=== PATIENT | male | born 1975 | race Caucasian/White ===

== ENCOUNTER 2017-09-14 19:02 | Emergency (ER) | payer MEDICAID ==
[~2017-09-14] VITALS: Ht 177.8 cm; Wt 96.2 kg
[~2017-09-14 19:02] MED LIST: ACCUNEB SOL3 ML/NEB IN; ALBUTEROL-200 PUFFS/ IH; ALBUTEROL0.09 MG/A1 IH; ALBUTEROL2 PUFFS/17 IN; ALBUTEROL200 PUFFS/ IH; ALPRAZOLAM0.25 M2 PO; AMOXIL500 MG PO; BACTRIM DS 8001 TAB PO; BIAXIN500 MG PO; CIPRO 500MG TA500 MG PO; CLINDAMYCIN300 MG PO; DARVOCET-N 1001 EACH PO; DOXYCYCLINE HY100 M3 PO; DOXYCYCLINE MO100 MG PO; DUONEB 3 MG/3 ML3 ML IH; ESCITALOPRAM20 MG NG; FLEXERIL10 MG PO; GABAPENTIN300 M1 PO; IPRATROPIUM BROM3 M1 IH; K-DUR 2020 MEQ PO; KEFLEX 500MG.500 MG PO; LORTAB 5/500 501 TAB PO; MEDROL 4MG TABLE4 MG PO; MEDROL 4MG. DOSE4 MG PO; NAPROSYN 500MG500 MG PO; OMNICEF 300 MG300 MG PO; PERCOCET 5/3251 EACH PO; PERCOCET 650 MG1 TAB PO; PHENERGAN VC +120 ML PO; PREDNISONE 10MG10 MG PO; PREDNISONE 20MG20 MG PO; PREDNISONE50 MG PO; PROVENTIL0.09 MG/A1 IH; STERAPRED DS10 MG PO; SYMBICORT 10.10.2 M1 IH; TESSALON PERLE100 MG PO; TESSALON PERLE200 MG PO; TRAMADOL 50MG T50 MG PO; TYLENOL ES500 MG PO; TYLENOL PM 5001 CAP PO; TYLENOL W/CODEI1 TA2 PO; ULTRACET 325 MG1 TAB PO; ULTRAM 50 MG TA50 MG PO; ULTRAM50 MG PO; VENTOLIN H0.09 MG/Ac IH; VIBRA-TABS100 MG PO; VIBRAMYCIN 100100 MG PO; VOLTAREN1% TP; VOLTAREN75 MG PO; XANAX 1MG TABLET1 MG PO; XANAX1 MG PO; ZITHROMAX 250M250 MG PO; ZYRTEC 10MG TAB10 MG PO; ZYRTEC-D 12HR 51 TER PO
--- OUTSIDE RECORDS SUMMARY | 2017-09-14 19:13 | External Medical Summary Rpt | CCD ---
Author Author , KEIRY Organization KEIRY Address Unknown Phone [email or web address] Care Team Providers Care Splitting Machine Operator Name Role Phone [facility] Unavailable Unavailable [place], [facility] [place] BEINEKE, BEINEKE Unavailable Unavailable [facility] Unavailable Unavailable SERVICE, [facility] Unavailable Unavailable SERVICE, [facility] ADY RODRÍGUEZ, Unavailable Unavailable ADY RODRÍGUEZ [facility] Unavailable Unavailable [facility], [facility] Unavailable [facility]available [facility], [facility] WOOD JULIO, WOOD JULIO Unavailable Unavailable WOOD JULIO, WOOD JULIO Unavailable Unavailable SIENA STEARNS, Unavailable Unavailable SIENA STEARNS [facility], Unavailable Unavailable [facility] [place] [facility] [place] [facility], RED Unavailable Unavailable FRYMAN, FRYMAN Unavailable Unavailable FRYMAN EUG, FRYMAN Unavailable Unavailable EUG DIO BOGDAN, DIO Unavailable Unavailable BOGDAN [facility] Unavailable Unavailable INC, [facility] Unavailable Unavailable HOSPITAL, [facility] Unavailable Unavailable HOSPITAL P, [facility] P [facility], Unavailable [facility]available [facility], Unavailable Unavailable [facility] ARACELIS DUGAN Unavailable Unavailable [facility] Unavailable Un[facility], [facility] Unavailable Unavailable [facility]INGS, [facility] Unavailable Unavailable [facility], [facility] Unavailable Unavailable SERVICES, [facility] BEREKET GRAHAM JR Unavailable Unavailable F, BEREKET GRAHAM JR, EMMETT P, Unavailable Unavailable [facility], Unavailable Unavailable PLL[facility], [facility] PRETORIUS MARKUS, Unavailable Unavailable PRETORIUS MARKUS [id number], Unavailable Unavailable [id number] SCIFRES, SCIFRES Unavailable Unavailable SCIFRES, SCIFRES Unavailable Unavailable SOKAN BAB, SOKAN BAB Unavailable Unavailable PAUL SANTIAGO, Unavailable Unavailable PAUL SANTIAGO MD, Unavailable Unavailable Russel Graham MD [facility] Unavailable Unavailable #591, [facility] REYNOLDS MAR, REYNOLDS MAR Unavailable Unavailable Purpose Continuity of Care Document - 11-28-2007 through 2016 Problems Code Diagnosis DOS Provider Status H524 PRESBYOPIA 11-25-2016 SCIF[facility] [id number] UNSPECIFIED 10-15-2016 [facility] ED R0602 SHORTNESS 10-15-2016 [place] R062 WHEEZING 10-15-2016 [facility], [facility] J40 BRONCHITIS 10-05-2016 [facility] NOT PHYSICIAN SPECIFIED GROUP ACUTE OR CHRONIC J209 ACUTE 07-31-2016 [facility] BRONCHITIS PHYSICIAN UNSPECIFIED GROUP E663 OVERWEIGHT 05-14-2016 [facility] Z720 TOBACCO USE 05-14-2016 [facility] B356 TINEA 04-11-2016 [facility] CRURIS PHYSICIANS GROUP J449 CHRONIC 04-11-2016 [facility] OBSTRUCTIVE PHYSICIANS PULMONARY GROUP DISEASE UNS D649 ANEMIA 10-17-2015 [facility] [place] E559 VITAMIN D 10-17-2015 [facility]ICIENC[facility] UNSPECIFIED HOLDINGS B57367 UNSPECIFIED 10-17-2015 [facility] WITH ACUTE HOLDINGS EXACERBATIO N J3089 OTHER 10-10-2015 [facility] [place] J440 COPD WITH 10-10-2015 [facility] ACUTE [facility] [place] RESPIRATORY INFECTION J4520 MILD 10-10-2015 [facility] INTERMITTEN [facility] T [facility] [place] UNCOMPLICAT ED [id number] PERSONAL 10-10-2015 [facility] HISTORY OF PARTN[facility] OF NICOTINE [place] DEPENDENCE 4660 ACUTE 04-30-2015 [facility] 28737 METHICILLIN 02-16-2015 [facility] P CUS AUREUS 6823 CELLULITIS 02-16-2015 [facility] P ARM AND FOREARM V5869 LONG-TERM 05-17-2013 WOOD JULIO (CURRENT) USE OF OTHER MEDICATIONS 5070 PNEUMONITIS 05-04-2013 [facility] DUE TO EMERGENCY INHALATION SERVICES OF FOOD OR VOMITUS 92746 ALTERED 05-04-2013 [facility] EMERGENCY STATUS SERVICES 52162 SHORTNESS 05-04-2013 [facility] V154 PERS HX 04-28-2008 DEPT FOR PSYCHOLOGIC PUBLIC HLTH AL TRAUMA PRS [facility] 71876 ASTHMA, 02-06-2008 PAMELA, UNSPECIFIED DON R , UNSPECIFIED STATUS 65257 UNS ADVRS 02-06-2008 PAMELA, EFF OTH RX DON R MEDICINAL&B IOLOGICAL SBSTNC 2768 HYPOPOTASSE 02-05-2008 [facility] PROF SERV 23231 CHRONIC 02-05-2008 [facility] WITH PROF SERV EXACERBATIO N 9712 POISONING 02-05-2008 [facility] ETICS PROF SERV 7295 PAIN IN 02-02-2008 SANTIAGO, SOFT DON R TISSUES OF LIMB 48455 CLOSED 11-30-2007 RODRÍGUEZ, FRACTURE ADY METACARPAL BONE SITE UNSPECIFIED [id number] Anxiety [place] disorder [facility] 724.2 Low back [facility] Allergies, Adverse Reactions, Alerts Type Drug Allergy Food Allergy Adverse Reaction to Substance Substance Reaction Severity Hydrocodone I-HIVES Intermediate Peanuts "THROAT SWELLS SHUT" Severe PEANUTS (FOOD) "THROAT SWELLS SHUT" Severe Clinical Alert Notifications Alert Asthma: absence of controller with h/o SA beta agonist Asthma: no influenza vaccine in the last 365 days Medications Na ND Rx Da Fi Fi Am Da Di Ph RX Ph St me C No te ll ll ou ys ag ar # ys at rm s nt no ma ic us Or Da si cy ia de te s n re d CE 16 12 02 30 30 00 EA Ac TI 71 -3 -[address] ti RI 40 0- 3- 00 00 SI ve ZI 27 20 20 44 DE NE 10 16 17 80 3 77 PH HC AR L MA 10 CY MG OF CY TA NT BL HI ET AN A IN C VE 00 12 01 18 18 00 EA Ac NT 17 -2 -[address] ti OL 30 7- 7- 00 00 SI ve IN 68 20 20 47 DE 22 16 17 02 HF 0 90 PH A AR 90 MA CY MC G OF IN CY [place] NT LE HI R AN A IN C VE 00 12 01 18 18 00 EA Ac NT 17 -0 -[address] ti OL 30 3- 9- 00 00 SI ve IN 68 20 20 44 DE 22 16 17 80 HF 0 78 PH A AR 90 MA CY MC G OF IN CY [place] NT LE HI R AN A IN C CE 16 12 01 30 30 00 EA Ac TI 71 -0 -[address] ti RI 40 3- 9- 00 00 SI ve ZI 27 20 20 44 DE NE 10 16 17 80 3 77 PH HC AR L MA 10 CY MG OF CY TA NT BL HI ET AN A IN C CE 00 06 0 No FT 40 -0 RI 97 8- Lo AX 33 20 ng ON 30 13 er E 4 1 Ac GM ti ve AL So 00 06 0 No d 07 -0 Ch 47 8- Lo lo 10 20 ng ri 11 13 er de 3 Ac 0. ti 9% ve 50 ML Ad v IP 00 06 0 No RA 48 -0 T- 70 7- Lo AL 20 20 ng BU 10 13 er T 1 0. Ac 5- ti 3( ve 2. 5) MG /3 ML Sa 63 06 0 No li 80 -0 ne 70 7- Lo 10 20 ng Fl 07 13 er us 5 h Ac 10 ti ML ve Sy ri ng e Ga 68 06 1 No ba 08 -0 pe 40 7- Lo nt 08 20 ng in 00 13 er 1 30 Ac 0M ti G ve Ca ps ul e Al 68 06 1 No pr 08 -0 az 40 7- Lo ol 02 20 ng am 00 13 er 1 1M Ac G ti Ta ve bl et Me 00 06 1 No th 00 -0 yl 90 7- Lo pr 19 20 ng ed 00 13 er ni 9 so Ac lo ti ne ve So d Schwartz cc in a CE 00 06 0 No FT 40 -0 RI 97 7- Lo AX 33 20 ng ON 30 13 er E 4 1 Ac GM ti ve AL So 00 06 0 No d 07 -0 Ch 47 7- Lo lo 10 20 ng ri 11 13 er de 3 Ac 0. ti 9% ve 50 ML Ad v AZ 00 06 1 No IT 40 -0 HR 90 7- Lo OM 14 20 ng YC 41 13 er IN 1 Ac I. ti V. ve 50 0 MG AL SO 00 06 1 No DI 40 -0 UM 97 7- Lo 10 20 ng CH 10 13 er LO 2 RI Ac DE ti ve 0. 9% SO LN CL 00 06 0 No IN 40 -0 DA 94 7- Lo MY 05 20 ng CI 50 13 er N 3 15 Ac 0 ti MG ve /M L AD DV AN So 00 06 0 No di 07 -0 um 47 7- Lo 10 20 ng Ch 12 13 er lo 3 ri Ac de ti ve 0. 9% 10 0M L Ad v So 00 06 1 No di 07 -0 um 47 7- Lo 10 20 ng Ch 12 13 er lo 3 ri Ac de ti ve 0. 9% 10 0M L Ad v 17 06 07 01 [address] Ac 27 -0 -0 .0 TE 63 EP ti 00 6- 3- 00 76 HE ve 72 20 20 AI NS 10 08 08 D 1 PH DO AR N M R #3 93 8 00 06 07 00 10 2 EA 98 No Ac 05 -1 -[address] 36 t ti 44 3- 3- 00 SI 75 Av ve 65 20 20 DE ai 02 08 08 la 5 PH bl AR e MA CY OF CY NT HI AN A AM 00 06 07 00 30 10 EA 98 No Ac OX 78 -1 -[address] 36 t ti IC 12 3- 3- 00 SI 76 Av ve IL 61 20 20 DE ai LI 30 08 08 la N 5 PH bl 50 AR e 0 MA MG CY CA OF PS CY UL NT E HI AN A 00 06 06 00 12 3 EA 98 No Ac 05 -0 -[address] 27 t ti 44 6- 2- 00 SI 51 Av ve 65 20 20 DE ai 02 08 08 la 5 PH bl AR e MA CY OF CY NT HI AN A AD 00 06 06 00 [address] Ac VA 17 -0 -1 .0 TE 63 EP ti IR 30 6- 2- 00 77 HE ve 69 20 20 AI NS 10 50 08 08 D 0- 0 PH DO 50 AR N M R DI #3 SK 93 US 8 17 06 06 00 [address] Ac 27 -0 -1 .0 TE 63 EP ti 00 6- 2- 00 76 HE ve 72 20 20 AI NS 10 08 08 D 1 PH DO AR N M R #3 93 8 17 01 05 04 17 16 RI 71 No Ac 27 -2 -0 .0 TE 60 t ti 00 1- 8- 00 08 Av ve 72 20 20 AI ai 10 08 08 D la 1 PH bl AR e M #3 93 8 17 01 04 03 17 16 RI 71 No Ac 27 -2 -2 .0 TE 60 t ti 00 1- 4- 00 08 Av ve 72 20 20 AI ai 10 08 08 D la 1 PH bl AR e M #3 93 8 AD 00 03 04 00 60 30 WA 69 No Ac VA 17 -1 -1 .0 L- 64 t ti IR 30 3- 7- 00 MA 25 Av ve 69 20 20 RT 8 ai 25 60 08 08 la 0- 0 PH bl 50 AR e MA DI CY SK US #5 91 00 03 04 00 6. 3 RI 72 No Ac 08 -1 -1 00 TE 38 t ti 51 0- 7- 0 05 Av ve 71 20 20 AI ai 80 08 08 D la 2 PH bl AR e M #3 93 8 VE 00 03 04 00 18 22 WA 69 No Ac NT 17 -1 -1 .0 L- 64 t ti OL 30 3- 7- 00 MA 25 Av ve IN 68 20 20 RT 7 ai 22 08 08 la HF 0 PH bl A AR e 90 MA CY MC G #5 IN 91 [place] LE R ME 00 03 04 00 21 6 RI 72 No Ac TH 60 -1 -1 .0 TE 38 t ti YL 34 0- 7- 00 03 Av ve MA 59 20 20 AI ai ED 31 08 08 D la NI 5 PH bl SO AR e LO M NE #3 4 93 8 MG DO SE PK AV 00 03 04 00 7. 7 WA 69 No Ac EL 08 -1 -1 00 L- 64 t ti OX 51 4- 7- 0 MA 25 Av ve 73 20 20 RT 9 ai 40 30 08 08 la 0 1 PH bl MG AR e MA TA CY BL ET #5 91 DO 00 03 04 00 14 7 RI 72 No Ac XY 14 -1 -1 .0 TE 38 t ti CY 33 0- 7- 00 04 Av ve CL 14 20 20 AI ai IN 20 08 08 D la E 5 PH bl HY AR e CL M AT #3 E 93 10 8 0 MG CA P 17 01 04 02 17 16 RI 71 No Ac 27 -2 -1 .0 TE 60 t ti 00 1- 0- 00 08 Av ve 72 20 20 AI ai 10 08 08 D la 1 PH bl AR e M #3 93 8 17 01 03 01 17 16 RI 71 No Ac 27 -2 -2 .0 TE 60 t ti 00 1- 6- 00 08 Av ve 72 20 20 AI ai 10 08 08 D la 1 PH bl AR e M #3 93 8 17 01 03 00 17 16 RI 71 No Ac 27 -2 -2 .0 TE 60 t ti 00 1- 5- 00 08 Av ve 72 20 20 AI ai 10 08 08 D la 1 PH bl AR e M #3 93 8 VA 00 01 03 00 14 7 RI 71 No Ac LT 17 -0 -2 .0 TE 41 t ti RE 30 9- 4- 00 63 Av ve X 93 20 20 AI ai 50 30 08 08 D la 0 8 PH bl MG AR e M CA #3 PL 93 ET 8 Vital Signs 05-05-2013 10:00 Name Value Interpretat Reference Comment ion Range Body 97.9 [degF] Temperature BP 77 mm[Hg] Diastolic BP Systolic 130 mm[Hg] Heart 80 /min Rate/Pulse Respiratory 20 /min Rate 05-05-2013 04:00 Name Value Interpretat Reference Comment ion Range O2% 96 % 05-04-2013 10:59 Name Value Interpretat Reference Comment ion Range Height 170.18 cm Weight 83.178 kg Measured 05-04-2013 08:14 Name Value Interpretat Reference Comment ion Range Body 99.8 [degF] Temperature BP 81 mm[Hg] Diastolic BP Systolic 141 mm[Hg] Heart 104 /min Rate/Pulse O2% 94 % Respiratory 20 /min Rate Weight 0 [oz_av] Measured Results Labs Lab Lab Date Result Refere Interp Status Commen Order Detail nces retati t Range on CBC with AUTO DIFF (05-05-2013 06:00) WBC # 08-2 16.9 4.8-10. complet Bld 013 K/MM3 8 ed Auto 06:00 RBC # 08-2 4.40 4.6-6.2 complet Bld 013 M/mm3 ed Auto 06:00 Hgb 05-05-2 12.7 14.1-18 complet Bld-mCn 013 g/dL .0 ed c 06:00 Hct Fr 05-05-2 38.4 % 42.0-52 complet Bld 013 .0 ed 06:00 MCV RBC 05-05-2 87.4 fl 82.2-97 complet 013 .8 ed 06:00 MCH RBC 05-05-2 28.9 pg 27-31.2 complet Qn 013 ed Auto 06:00 MEAN 05-05- 33.1 31.8-35 complet CORPUSC 013 g/dl .4 ed ULAR 06:00 HGB CONC RDW RBC 05-05- 14.1 % 11.5-17 complet Auto 013 .5 ed 06:00 Platele -08-2 210 142-424 complet t Bld 013 K/mm3 ed Ql 06:00 Manual MEAN 08-2 8.4 fl 7.4-10. complet PLATELE 013 4 ed T 06:00 VOLUME Granulo 08-2 93.7 % 37.0-80 complet cytes 013 .0 ed Fr Bld 06:00 Auto LYMPH % 08-2 4.4 % 10-50 complet 013 ed 06:00 Monocyt 0608-2 1.7 % 1.7-9.3 complet es Fr 013 ed Bld 06:00 Auto Eosinop 06-08-2 0.1 % 0.1-12. complet hil Fr 013 0 ed Bld 06:00 Auto Basophi 08-2 0.1 % 0.1-2.0 complet ls Fr 013 ed Bld 06:00 Auto Granulo -08-2 15.8 1.3-8.0 complet cytes # 013 K/mm3 ed Bld 06:00 Auto Lymphoc 08-2 0.7 0.7-4.5 complet ytes Fr 013 K/mm3 ed Bld 06:00 Auto Monocyt 06-08-2 0.3 0.1-1.0 complet es # 013 K/mm3 ed Bld 06:00 Auto Eosinop -08-2 0.0 0.0-0.4 complet hil # 013 K/mm3 ed Bld 06:00 Auto Basophi -08-2 0.0 0-0.2 complet ls # 013 K/MM3 ed Bld 06:00 Auto ARTERIAL BLOOD GAS (05-04-2013 08:45) ARTERIA 07-2 7.39 7.35-7. complet L PH 013 MMOL/L 45 ed 08:45 ARTERIA 07-2 41.0 35.0-45 complet L PCO2 013 MMHG .0 ed 08:45 ARTERIA 07-2 58.0 80-100 complet L PO2 013 MMHG ed 08:45 ARTERIA 07-2 25.0 22.0-26 complet L HCO3 013 MMOL/L .0 ed 08:45 ARTERIA 07-2 17.6 23-27 complet L TCO2 013 MMOL/L ed 08:45 Base 06-07-2 -0.2 -2.4-+2 complet excess 013 MMOL/L .3 ed BldA-sC 08:45 nc ARTERIA 91 % 90-100 complet L O2 013 ed SAT 08:45 Arteria ACCEPTA complet l 013 BLE ed patency 08:45 Wrist a SOURCE RIGHT complet 013 RADIAL ed 08:45 COMPREHENSIVE METABOLIC PANEL (05-04-2013 08:30) Glucose 162 74-106 complet 013 mg/dL ed Bld-mCn 08:30 c BUN 8 mg/dL 7-18 complet Bld-mCn 013 ed c 08:30 Creat 1.2 0.8-1.3 complet SerPl-m 013 mg/dL ed Cnc 08:30 GFR 68 Greater complet (ESTIMA 013 ML/MIN than ed BRAIN) 08:30 60 Sodium 139 136-145 complet SerPl-s 013 mmoL/L ed Cnc 08:30 Potassi 4.1 3.5-5.1 complet um 013 mmoL/L ed SerPl-s 08:30 Cnc Chlorid 102 98-107 complet e 013 mmoL/L ed SerPl-s 08:30 Cnc CO2 31 21.0-32 complet SerPl-s 013 mmoL/L .0 ed Cnc 08:30 Calcium 8.8 8.5-10. complet 013 mg/dL 1 ed SerPl-m 08:30 Cnc Prot 8.0 6.4-8.2 complet SerPl-m 013 gm/dL ed Cnc 08:30 Albumin 05-04-2 4.0 3.4-5.0 complet 013 gm/dL ed SerPl-m 08:30 Cnc Globuli 4.0 1.3-3.2 complet n 013 gm/dL ed Ser-mCn 08:30 c Albumin 2 1.0 UNK 1.1-1.8 complet /Glob 013 ed SerPl-m 08:30 Rto Bilirub 0.2 0.2-1.0 complet 013 mg/dL ed SerPl-m 08:30 Cnc AST 06-07-2 21 U/L 15-37 complet SerPl-c 013 ed Cnc 08:30 ALT 06-07-2 40 U/L 30-65 complet SerPl-c 013 ed Cnc 08:30 ALP 06-07-2 117 U/L 50-136 complet SerPl-c 013 ed Cnc 08:30 CBC with AUTO DIFF (05-04-2013 08:30) WBC # 06-07-2 21.6 4.8-10. High complet Bld 013 K/MM3 8 alert ed Auto 08:30 RBC # 06-07-2 5.10 4.6-6.2 complet Bld 013 M/mm3 ed Auto 08:30 Hgb 06-07-2 14.5 14.1-18 complet Bld-mCn 013 g/dL .0 ed c 08:30 Hct Fr -07-2 44.2 % 42.0-52 complet Bld 013 .0 ed 08:30 MCV RBC 06-07-2 86.6 fl 82.2-97 complet 013 .8 ed 08:30 MCH RBC -07-2 28.4 pg 27-31.2 complet Qn 013 ed Auto 08:30 MEAN 06-07-2 32.8 31.8-35 complet CORPUSC 013 g/dl .4 ed ULAR 08:30 HGB CONC RDW RBC -07-2 13.9 % 11.5-17 complet Auto 013 .5 ed 08:30 Platele 06-07-2 274 142-424 complet t Bld 013 K/mm3 ed Ql 08:30 Manual MEAN 07-2 7.5 fl 7.4-10. complet PLATELE 013 4 ed T 08:30 VOLUME Granulo -07-2 89.7 % 37.0-80 complet cytes 013 .0 ed Fr Bld 08:30 Auto LYMPH % 06-07-2 4.1 % 10-50 complet 013 ed 08:30 Monocyt 06-07-2 5.1 % 1.7-9.3 complet es Fr 013 ed Bld 08:30 Auto Eosinop 06-07-2 0.9 % 0.1-12. complet hil Fr 013 0 ed Bld 08:30 Auto Basophi 06-07-2 0.3 % 0.1-2.0 complet ls Fr 013 ed Bld 08:30 Auto Granulo 06-07-2 19.3 1.3-8.0 complet cytes # 013 K/mm3 ed Bld 08:30 Auto Lymphoc 06-07-2 0.9 0.7-4.5 complet ytes Fr 013 K/mm3 ed Bld 08:30 Auto Monocyt -07-2 1.1 0.1-1.0 complet es # 013 K/mm3 ed Bld 08:30 Auto Eosinop 06-07-2 0.2 0.0-0.4 complet hil # 013 K/mm3 ed Bld 08:30 Auto Basophi 06-07-2 0.1 0-0.2 complet ls # 013 K/MM3 ed Bld 08:30 Auto MYCOPLASMA IGM (RAPID) (05-04-2013 08:30) MYCOPLA 07-2 NON-RJ NONREAC complet SMA IGM 013 CTIVE TIVE ed 08:30 (RAPID) Procedures Procedure DOS Code Location Performer Comment OPHTH [address] [facility] [place] [facility] MEDICAL 6 XM&EVAL COMPRE NEW PT 1/> VST RADIOLOGI 45071 [facility] C EXAM 6 MEDICAL CHEST 2 IMAGING VIEWS ASS FRONTAL&L ATERAL THERAPEUT 49565 [facility] FRYMAN IC 6 PHYSICIAN PROPHYLAC GROUP TIC/DX INJECTION SUBQ/[place] [address] LAB ANA LAB ANA GAMMAGLOB 5 GALO GAL[facility] ULIN IGE [facility]INGS HOLDINGS 25 57288 LAB ANA LAB ANA HYDROXY 5 GALO GAL[facility] INCLUDES HOLDINGS HOLDINGS FRACTIONS IF PERFORMED BLOOD 33461 COMBINED COMBINED COUNT 5 PHYSICIAN PHYSICIAN COMPLETE S LA S LA AUTO&AUTO DIFRNTL WBC ALLERGEN 76435 LAB ANA LAB ANA SPECIFIC 5 [facility]O G[facility] HOLDINGS EMILY/SEMI EMILY EA ALLERGEN BRNCDILAT 00515 [facility] RE[facility] MAR RSPSE 5 PART[facility]ERS SPMTRY [facility] [place] PRE&POST- CO BRNCDILAT ADMN DEMO&/GABRIELLA 09497 [facility] ALLERGY L OF PT 5 PARTNERS PARTNERS UTILIZ [facility] [place] [facility] [place] AERSL CO CO GEN/NEB/I NHLR/IP NITRIC 85486 [facility] ALL[facility]GY OXIDE 5 [facility] [facility] [place] GAS CO CO DETERMINA TION CUL BACT 69396 [facility] XCPT 5 [facility] URINE INC INC BLOOD/STO OL AEROBIC ISOL CUL BACT 80487 [facility] AEROBIC 5 [facility] ADDL INC INC METHS DEFINITIV E EA ISOL INCISION 77711 [facility] PRETORIUS & 5 [facility] ABSCESS P SIMPLE/SI NGLE SUSCEPTIB 27264 [facility] ASTORGA LTY STDY 5 [facility] ANTIMICRB INC INC IAL MICRO/AGA R DILUTJ ECG 38858 WOOD JULIO WOOD JULIO ROUTINE 3 ECG W/LEAST 12 LDS I&R ONLY GROUND A0425 [facility] AM[facility]ULANCE PER SERVICE SERVICE STATUTE MILE [facility] A0427 [facility] SERVICE 3 AMBULANCE AMBULANCE ALS SERVICE SERVICE EMERGENCY TRANSPORT LEVEL 1 [facility] [address] [facility], DISCHARGE 8 DON R DON R DAY MANAGEMEN T 30 MIN/< SBSQ 74241 [facility] 8 DON R DON R CARE/DAY 25 MINUTES SBSQ 80502 [facility] 8 DON R DON R CARE/DAY 25 MINUTES RADIOLOGI 01280 [place] Alejandra STEARNS 8 MEDICAL SIENA EXAMINATI IMAGING ON CHEST ASSOCIATE SING[place] S [place] FRONTAL INITIAL [address] [place] [address] DON R DON R CARE/DAY 50 MINUTES RADIOLOGI 62690 [place] Alejandra LARSON EXAM 8 MEDICAL FRANCISCO P CHEST 2 IMAGING VIEWS ASSOCIATE FRONTAL&L S ATERAL ECG 70973 GAURI SEBASTIEN ROUTINE 8 [facility] BEREKET F W/LEAST PROF SERV 12 LDS I&R ONLY APPLICATI 61110 ANNE RODRÍGUEZ, ON CAST 8 ADY ADY SHOULDER HAND LONG ARM Encounters Encounter Start End Date Code Location Performer Type Date EMERGENCY 54792 [facility] FRANCES[facility] 6 6 PHYSICIAN DEPARTMEN S, PLLC T VISIT MODERATE SEVERITY OFFICE 23934 [facility] FRYMAN OUTPATIEN 6 6 PHYSICIAN T VISIT GROUP 25 MINUTES OFFICE 20088 [facility] RED OUTPATIEN 6 6 PHYSICIAN T VISIT GROUP 25 MINUTES OFFICE 20499 [facility] DIO OUTPATIEN 6 6 PHYSICIAN BOGDAN T VISIT S GROUP 15 MINUTES OFFICE 27472 [facility] DIO OUTPATIEN 6 6 PHYSICIAN BOGDAN T VISIT S GROUP 15 MINUTES OFFICE 00237 [facility] REYNOLDS MAR CONSULTAT 5 5 PARTNERS ION OF [place] NEW/ESTAB CO PATIENT 60 MIN OFFICE 73629 GA[facility] BARRETT OUTPATIEN 5 5 [facility] EMERGENCY 15 MINUTES EMERGENCY 08184 GAURI 5 5 [facility] T VISIT MODERATE SEVERITY EMERGENCY 92488 GAURI PRETORIUS 5 5 [facility] T VISIT P LIMITED/M INOR [facility] GAURI - 5 5 [facility] OUTPATIEN INC T Inpatient IMP Gauri Graham (IN) 3 08:59 3 10:30 [facility] EMERGENCY 94224 TIMO FARLEY [facility] DEPT 3 3 EMERGENCY VISIT SERVICES HIGH SEVERITY& THREAT [facility] GAURI - 8 8 [facility] INPATIENT INC OFFICE 95030 PAMELA SANTIAGO OUTPATIEN 8 8 DON R DON R T VISIT 15 MINUTES OFFICE 90821 ANNE RODRÍGUEZ OUTPATIEN 8 8 ADY ADY T VISIT 40 MINUTES
--- OUTSIDE RECORDS SUMMARY | 2017-09-14 19:13 | External Medical Summary Rpt | CCD ---
Author Author , KEIRY Organization KEIRY Address Unknown Phone Care Team Providers Care Supervisor Plastic Sheets Name Role Phone [facility] Unavailable Unavailable [place], [facility] [place] BEINEKE, BEINEKE Unavailable Unavailable [facility] Unavailable Unavailable SERVICE, [facility] Unavailable Unavailable SERVICE, [facility] ADY RODRÍGUEZ, Unavailable Unavailable ADY RODRÍGUEZ [facility] Unavailable Unavailable [place], [facility] Unavailable Unavailable [place], [facility] [place] WOOD JULIO, WOOD JULIO Unavailable Unavailable WOOD JULIO, WOOD JULIO Unavailable Unavailable SIENA STEARNS, Unavailable Unavailable SIENA STEARNS [facility], Unavailable Unavailable [facility] [place], [facility] [place], RED Unavailable Unavailable FRYMAN, FRYMAN Unavailable Unavailable FRYMAN EUG, FRYMAN Unavailable Unavailable EUG DIO BOGDAN, DIO Unavailable Unavailable BOGDAN [facility] Unavailable Unavailable INC, [facility] Unavailable Unavailable [facility]OSPITAL, [facility] Unavailable Unavailable HOSPITAL P, [facility], Unavailable Unavailable [facility], Unavailable Unavailable [facility] ARACELIS DUGAN Unavailable Unavailable [facility] Unavailable [facility], [facility] Unavailable Unavailable HOLDINGS, [facility] Unavailable Unavailable HOLDINGS, [facility] Unavailable Unavailable SERVICES, [facility] BEREKET GRAHAM JR Unavailable Unavailable [...] DOS Provider Status H524 PRESBYOPIA 11-25-2016 SCIF[facility] [id number] UNSPECIFIED 10-15-2016 [facility] ASS ED R0602 SHORTNESS 10-15-2016 [facility] R062 WHEEZING 10-15-2016 [facility] J40 BRONCHITIS 10-05-2016 [facility] NOT PHYSICIAN SPECIFIED GROUP ACUTE OR CHRONIC J209 ACUTE 07-31-2016 [facility] BRONCHITIS PHYSICIAN UNSPECIFIED GROUP E663 OVERWEIGHT 05-14-2016 [facility] Z720 TOBACCO USE 05-14-2016 [facility] B356 TINEA 04-11-2016 [facility] CRURIS PHYSICIANS GROUP J449 CHRONIC 04-11-2016 [facility] OBSTRUCTIVE PHYSICIANS PULMONARY GROUP DISEASE UNS D649 ANEMIA 10-17-2015 COMBINED UNSPECIFIED PHYSICIANS [place] E559 VITAMIN D 10-17-2015 [facility] GALO UNSPECIFIED HOLDINGS [id number] UNSPECIFIED 10-17-2015 [facility] ASTHMA GALO WITH ACUTE HOLDINGS EXACERBATIO N J3089 OTHER 10-10-2015 [facility] J440 COPD WITH 10-10-2015 [facility] ACUTE LOWER [facility] [place] RESPIRATORY INFECTION J4520 MILD 10-10-2015 [facility] INTERMITTEN PARTNERS OF T [facility] [place] UNCOMPLICAT ED X58291 PERSONAL 10-10-2015 [facility] HISTORY OF PARTNERS OF NICOTINE [place] DEPENDENCE 4660 ACUTE 04-30-2015 [facility] BRONCHITIS [facility] 45697 METHICILLIN 02-16-2015 [facility] CUS AUREUS 6823 CELLULITIS 02-16-2015 [facility] AND ABSCESS [facility] P ARM AND FOREARM V5869 LONG-TERM 05-17-2013 WOOD JULIO (CURRENT) USE OF OTHER MEDICATIONS 5070 PNEUMONITIS 05-04-2013 [facility] DUE TO EMERGENCY INHALATION SERVICES OF FOOD OR VOMITUS 47640 ALTERED 05-04-2013 [facility] EMERGENCY STATUS SERVICES 02520 SHORTNESS 05-04-2013 [facility] OF BREATH AMBULANCE SERVICE V154 PERS HX 04-28-2008 DEPT FOR PSYCHOLOGIC PUBLIC HLTH AL TRAUMA PRS [facility] 96788 ASTHMA, 02-06-2008 PAMELA, UNSPECIFIED DON R , UNSPECIFIED STATUS 62222 UNS ADVRS 02-06-2008 PAMELA, EFF OTH RX DON R MEDICINAL&B IOLOGICAL SBSTNC 2768 HYPOPOTASSE 02-05-2008 PSYCHIATRIC PROF SERV 58354 CHRONIC 02-05-2008 [facility] WITH PROF SERV EXACERBATIO N 9712 POISONING 02-05-2008 [facility] ETICS PROF SERV 7295 PAIN IN 02-02-2008 SANTIAGO, SOFT DON R TISSUES OF LIMB 79546 CLOSED 11-30-2007 RODRÍGUEZ, FRACTURE ADY METACARPAL BONE SITE UNSPECIFIED [id number] Anxiety Galvin disorder [facility] 724.2 Low back [facility] Allergies, Adverse Reactions, Alerts Type Drug Allergy [...] 34 0- 7- 00 03 Av ve NC 59 20 20 AI ai ED 31 [...] Procedure DOS Code Location Performer Comment OPHTH 80546 [facility] MEDICAL 6 XM&EVAL COMPRE NEW PT 1/> VST RADIOLOGI 95101 [facility] C EXAM 6 MEDICAL CHEST 2 IMAGING VIEWS ASS FRONTAL&L ATERAL THERAPEUT 76827 [facility] FRYMAN IC 6 PHYSICIAN PROPHYLAC GROUP TIC/DX INJECTION SUBQ/[place] [address] LAB ANA LAB ANA GAMMAGLOB 5 GALO GALO ULIN IGE HOLDINGS HOLDINGS 25 51131 LAB ANA LAB ANA HYDROXY 5 GALO GALO INCLUDES HOLDINGS HOLDINGS FRACTIONS IF PERFORMED BLOOD 82331 COMBINED COMBINED COUNT 5 PHYSICIAN PHYSICIAN COMPLETE S LA S LA AUTO&AUTO DIFRNTL WBC ALLERGEN 49428 LAB ANA LAB ANA SPECIFIC 5 GALO GALO IGE HOLDINGS HOLDINGS EMILY/SEMI EMILY EA ALLERGEN BRNCDILAT 55251 [facility] REYNOLDS MAR RSPSE 5 PARTNERS SPMTRY OF [place] PRE&POST- CO BRNCDILAT ADMN DEMO&/GABRIELLA 50007 [facility] ALLERGY L OF PT 5 PARTNERS PARTNERS UTILIZ OF [place] AERSL CO CO GEN/NEB/I NHLR/IP NITRIC 38736 ALL[facility] ALLERGY OXIDE 5 PARTNERS PARTN[facility] OF [place] GAS CO CO DETERMINA TION CUL BACT 00644 GA[facility] ASTORGA XCPT 5 [facility] URINE INC INC BLOOD/STO OL AEROBIC ISOL CUL BACT 71752 GAURI ASTORGA AEROBIC 5 [facility] ADDL INC INC METHS DEFINITIV E EA ISOL INCISION 75604 GAURI PRETORIUS & 5 [facility] ABSCESS P SIMPLE/SI NGLE SUSCEPTIB 25611 GAURI ASTORGA LTY STDY 5 [facility] ANTIMICRB INC INC IAL MICRO/AGA R DILUTJ ECG 95764 WOOD JULIO WOOD JULIO ROUTINE 3 ECG W/LEAST 12 LDS I&R ONLY GROUND A0425 [facility] AMBULANCE PER SERVICE SERVICE STATUTE [facility] A0427 [facility] SERVICE 3 AMBULANCE AMBULANCE ALS SERVICE SERVICE EMERGENCY TRANSPORT LEVEL 1 [facility] 56796 [facility], DISCHARGE 8 DON R DON R DAY MANAGEMEN T 30 MIN/< SBSQ 52710 [facility] 8 DON R DON R CARE/DAY 25 MINUTES SBSQ 38446 [facility] 8 DON R DON R CARE/DAY 25 MINUTES RADIOLOGI 18786 [facility] Alejandra STEARNS 8 MEDICAL SIENA EXAMINATI IMAGING ON CHEST ASSOCIATE SINGLE S [place]IEW FRONTAL INITIAL [address]31 [place] [address] DON R DON R CARE/DAY 50 MINUTES RADIOLOGI 22764 [place] Alejandra ALRSON EXAM 8 MEDICAL FRANCISCO P CHEST 2 IMAGING VIEWS ASSOCIATE FRONTAL&L S ATERAL ECG 63556 GAURI SEBASTIEN ROUTINE 8 [facility] BEREKET F W/LEAST PROF SERV 12 LDS I&R ONLY APPLICATI 00428 ANNE RODRÍGUEZ, ON CAST 8 ADY ADY SHOULDER HAND LONG ARM Encounters Encounter Start End Date Code Location Performer Type Date EMERGENCY 29794 [facility] FRANCES[facility] 6 6 PHYSICIAN DEPARTMEN S, PLLC T VISIT MODERATE SEVERITY OFFICE 64884 [facility] FRYMAN OUTPATIEN 6 6 PHYSICIAN T VISIT GROUP 25 MINUTES OFFICE 17793 [facility] RED OUTPATIEN 6 6 PHYSICIAN T VISIT GROUP 25 MINUTES OFFICE 59033 [facility] DIO OUTPATIEN 6 6 PHYSICIAN BOGDAN T VISIT S GROUP 15 MINUTES OFFICE 78833 [facility] DIO OUTPATIEN 6 6 PHYSICIAN BOGDAN T VISIT S GROUP 15 MINUTES OFFICE 18165 [facility] REYNOLDS MAR CONSULTAT 5 5 PARTNERS ION OF [place] NEW/ESTAB CO PATIENT 60 MIN OFFICE 15362 GA[facility] BARRETT OUTPATIEN 5 5 [facility] 15 MINUTES EMERGENCY 30286 GAURI 5 5 [facility] T VISIT MODERATE SEVERITY EMERGENCY 77782 [facility] PRETORIUS 5 5 [facility] T VISIT P LIMITED/M [facility] GAURI - 5 5 [facility] OUTPATIEN INC T Inpatient IMP Gauri Graham (IN) 3 08:59 3 10:30 [facility] EMERGENCY 73640 [facility] DEPT 3 3 EMERGENCY VISIT SERVICES HIGH SEVERITY& THREAT [facility] GAURI - 8 8 [facility] INPATIENT INC OFFICE 45088 PAMELA SANTIAGO OUTPATIEN 8 8 DON R DON R T VISIT 15 MINUTES OFFICE 91486 ANNE RODRÍGUEZ OUTPATIEN 8 8 ADY ADY T VISIT 40 MINUTES
--- OUTSIDE RECORDS SUMMARY | 2017-09-14 19:14 | External Medical Summary Rpt | CCD ---
Author Author , KEIRY Organization KEIRY Address Unknown Phone [email or web address] Care Team Providers Care Senior Materials Analyst Name Role Phone [facility] Unavailable Unavailable [place], [facility] [place] BEINEKE, BEINEKE Unavailable Unavailable [facility] Unavailable Unavailable SERVICE, [facility] Unavailable Unavailable SERVICE, [facility] ADY RODRÍGUEZ, Unavailable Unavailable ADY RODRÍGUEZ [facility] Unavailable Unavailable [place], [facility] Unavailable Unavailable [place], [facility] WOOD JULIO, WOOD JULIO Unavailable Unavailable WOOD JULIO, WOOD JULIO Unavailable Unavailable DARYN, SIENA, Unavailable Unavailable DARYN, SIENA [facility], Unavailable Unavailable [facility] [place] [place], [facility] [place] RED, RED Unavailable Unavailable FRYMAN, FRYMAN Unavailable Unavailable FRYMAN EUG, FRYMAN Unavailable Unavailable EUG DIO BOGDAN, DIO Unavailable Unavailable BOGDAN [facility] Unavailable Unavailable INC, [facility] Unavailable [facility]available [facility], [facility] Unavailable [facility]available [facility]PITAL P, [facility] Unavailable Unavailable [facility], Unavailable Unavailable [facility] ARACELIS DUGAN Unavailable Unavailable [facility] Unavailable [facility]available [facility], [facility] Unavailable Unavailable HOLDINGS, [facility] Unavailable Unavailable HOLDINGS, [facility] Unavailable Unavailable SERVICES, [facility] BEREKET CROWE JR Unavailable Unavailable F, BEREKET CROWE JR F FRANCISCO LARSON, Unavailable Unavailable FR[facility]ISCO [facility], [facility] PRETORIUS MARKUS, Unavailable Unavailable PRETORIUS MARKUS [id number], Unavailable Unavailable [facility] SCIFRES, SCIFRES Unavailable Unavailable SCIFRES, SCIFRES Unavailable Unavailable SOKAN BAB, SOKAN BAB Unavailable Unavailable SANTIAGO, DON R, Unavailable Unavailable SANTIAGO, DON R [facility] Unavailable Unavailable [facility], [facility] REYNOLDS MAR, REYNOLDS MAR Unavailable Unavailable Purpose Continuity of Care Document - 11-28-2007 through 2016 Problems Code Diagnosis DOS Provider Status H524 PRESBYOPIA 11-25-2016 ENRIQUE [id number] UNSPECIFIED 10-15-2016 [facility] UNCOMPL[facility]AT IM[facility]ING ASS ED R0602 SHORTNESS 10-15-2016 [facility] R062 WHEEZING 10-15-2016 [facility] J40 BRONCHITIS 10-05-2016 [facility] NOT PHYSICIAN SPECIFIED GROUP ACUTE OR CHRONIC J209 ACUTE 07-31-2016 [facility] BRONCHITIS PHYSICIAN UNSPECIFIED GROUP E663 OVERWEIGHT 05-14-2016 [facility] Z720 TOBACCO USE 05-14-2016 [facility] B356 TINEA 04-11-2016 [facility] CRURIS PHYSICIANS GROUP J449 CHRONIC 04-11-2016 [facility] OBSTRUCTIVE PHYSICIANS PULMONARY GROUP DISEASE UNS D649 ANEMIA 10-17-2015 COMBINED UNSPECIFIED PHYSICIANS [place] E559 VITAMIN D 10-17-2015 LAB ANA DEFICIENCY GALO UNSPECIFIED HOLDINGS W16305 UNSPECIFIED 10-17-2015 LAB A[facility] ASTHMA GALO WITH ACUTE HOLDINGS EXACERBATIO N J3089 OTHER 10-10-2015 [facility] [place] J440 COPD WITH 10-10-2015 [facility] ACUTE [facility] [place] RESPIRATORY INFECTION J4520 MILD 10-10-2015 [facility] INTERMITTEN PARTNERS OF T [facility] [place] UNCOMPLICAT ED [id number] PERSONAL 10-10-2015 [facility] HISTORY OF PARTNERS OF NICOTINE [place] DEPENDENCE 4660 ACUTE 04-30-2015 [place] BRONCHITIS [facility] 66320 METHICILLIN 02-16-2015 [place] [facility]ISTANT [facility] P CUS AUREUS 6823 CELLULITIS 02-16-2015 [place] AND ABSCESS [facility] P ARM AND FOREARM V5869 LONG-TERM 05-17-2013 WOOD JULIO (CURRENT) USE OF OTHER MEDICATIONS 5070 PNEUMONITIS 05-04-2013 [place] DUE TO EMERGENCY INHALATION SERVICES OF FOOD OR VOMITUS 20886 ALTERED 05-04-2013 [place] MENTAL [facility]Y STATUS SERVICES 68751 SHORTNESS 05-04-2013 [facility] OF BREATH AMBULANCE SERVICE V154 PERS HX 04-28-2008 DEPT FOR PSYCHOLOGIC PUBLIC HLTH AL TRAUMA PRS [facility] 21891 ASTHMA, 02-06-2008 SANTIAGO, UNSPECIFIED DON R , UNSPECIFIED STATUS 23453 UNS ADVRS 02-06-2008 BETTY SANTIAGO OTH RX DON R MEDICINAL&B IOLOGICAL SBSTNC 2768 HYPOPOTASSE 02-05-2008 [facility] PROF SERV 76515 CHRONIC 02-05-2008 [facility] WITH PROF SERV EXACERBATIO N 9712 POISONING 02-05-2008 [place] BY [facility] ETICS PROF SERV 7295 PAIN IN 02-02-2008 PAMELA, SOFT DON R TISSUES OF LIMB 23359 CLOSED 11-30-2007 RODRÍGUEZ, FRACTURE ADY METACARPAL BONE SITE UNSPECIFIED Medications Na ND Rx Da Fi Fi [...] BL HI ET AN A IN C 17 06 07 01 17 17 RI [...] MA DI CY SK US #5 91 AV 00 03 04 00 7. 7 WA 69 No Ac EL 08 -1 -1 00 L- 64 t ti OX 51 4- 7- 0 MA 25 Av ve 73 20 20 RT 9 ai 40 30 08 08 la 0 1 PH bl MG AR e MA TA CY BL ET #5 91 VE 00 03 04 00 18 22 WA 69 No Ac NT 17 -1 -1 .0 L- 64 t ti OL 30 3- 7- 00 MA 25 Av ve IN 68 20 20 RT 7 ai 22 08 08 la HF 0 PH bl A AR e 90 MA CY MC G #5 IN 91 [place] LE R DO 00 03 04 00 14 7 RI 72 No Ac XY 14 -1 -1 .0 TE 38 t ti CY 33 0- 7- 00 04 Av ve CL 14 20 20 AI ai IN 20 08 08 D la E 5 PH bl HY AR e CL M AT #3 E 93 10 8 0 MG CA P ME 00 03 04 00 21 6 RI 72 No Ac TH 60 -1 -1 .0 TE 38 t ti YL 34 0- 7- [address] 59 20 20 AI ai ED 31 08 08 D la NI 5 PH bl SO AR e LO M NE #3 4 93 8 MG DO SE PK 00 03 04 00 6. 3 RI 72 No Ac 08 -1 -1 00 TE 38 t ti 51 0- 7- 0 05 Av ve 71 20 20 AI ai 80 08 08 D la 2 PH bl AR e M #3 93 8 17 01 04 02 17 16 RI [...] M CA #3 PL 93 ET 8 Procedures Procedure DOS Code Location Performer Comment [facility] 83837 SCIFRES SCIFRES MEDICAL 6 XM&EVAL COMPRE NEW PT 1/> VST RADIOLOGI 04951 [facility] C EXAM 6 MEDICAL CHEST 2 IMAGING VIEWS ASS FRONTAL&L ATERAL THERAPEUT 24626 [facility] FRYMAN IC 6 PHYSICIAN PROPHYLAC GROUP TIC/DX INJECTION SUBQ/IM 25 17160 LAB ANA LAB ANA HYDROXY 5 GALO GALO INCLUDES HOLDINGS HOLDINGS FRACTIONS IF PERFORMED ALLERGEN 65528 LAB ANA LAB ANA SPECIFIC 5 GALO GALO IGE HOLDINGS HOLDINGS EMILY/SEMI EMILY EA ALLERGEN BLOOD 39096 COMBINED COMBINED COUNT 5 PHYSICIAN PHYSICIAN COMPLETE S LA S LA AUTO&[place] [address] LAB ANA LAB ANA GAMMAGLOB 5 GALO GALO ULIN IGE HOLDINGS HOLDINGS BRNCDILAT 99850 [facility] REYNOLDS MAR RSPSE 5 PARTNERS SPMTRY OF [place] PRE&POST- CO BRNCDILAT ADMN DEMO&/GABRIELLA 43511 ALLER[facility] ALLERGY L OF PT 5 PARTNERS PARTNERS UTILIZ OF [place] OF [place] AERSL CO CO GEN/NEB/I NHLR/IP NITRIC 96209 [facility] ALLERGY OXIDE 5 PARTNERS [facility] [place] OF [place] GAS CO CO DETERMINA TION INCISION 76512 [facility] ASTORGA & 5 [facility] DRAINAGE INC INC ABSCESS SIMPLE/SI NGLE CUL BACT 82807 [facility] ASTORGA XCPT 5 [facility] URINE INC INC BLOOD/STO OL AEROBIC ISOL CUL BACT 04143 [facility] ASTORGA AEROBIC 5 [facility] ADDL INC INC METHS DEFINITIV E EA ISOL SUSCEPTIB 97388 GA[facility] ASTORGA LTY STDY 5 [facility] ANTIMICRB INC INC IAL MICRO/AGA R DILUTJ ECG 33570 WOOD JULIO WOOD JULIO ROUTINE 3 ECG W/LEAST 12 LDS I&R ONLY AMB A0427 [facility] SERVICE 3 AMBULANCE AMBULANCE ALS SERVICE SERVICE EMERGENCY TRANSPORT LEVEL 1 GROUND A0425 [facility] 3 AMBULANCE AMBULANCE PER SERVICE SERVICE STATUTE [facility] 29028 [facility] 8 DON R DON R DAY MANAGEMEN T 30 MIN/< SBSQ 60187 [facility] DON R DON R CARE/DAY 25 MINUTES SBSQ 57594 [facility] 8 DON R DON R CARE/DAY 25 MINUTES RADIOLOGI 35116 [facility] Alejandra STEARNS 8 MEDICAL SIENA EXAMINATI IMAGING ON CHEST ASSOCIATE SINGLE S VIEW FRONTAL INITIAL 33644 [facility] 8 DON R DON R CARE/DAY 50 MINUTES RADIOLOGI 93587 [facility] Alejandra LARSON EXAM 8 MEDICAL FRANCISCO P CHEST 2 IMAGING VIEWS ASSOCIATE FRONTAL&L S ATERAL ECG 68030 [facility] CROWE ROUTINE 8 [facility] BEREKET Urvashi W/LEAST PROF SERV 12 LDS I&R ONLY APPLICATI 29327 ANNE RODRÍGUEZ, ON CAST 8 ADY ADY SHOULDER HAND LONG ARM Encounters Encounter Start End Date Code Location Performer Type Date EMERGENCY 65478 [facility] 6 6 PHYSICIAN [facility] T VISIT MODERATE SEVERITY OFFICE 36876 [facility] FR[facility]MAN OUTPATIEN 6 6 PHYSICIAN T VISIT GROUP 25 MINUTES OFFICE 08222 [facility] RED OUTPATIEN 6 6 PHYSICIAN T VISIT GROUP 25 MINUTES OFFICE 05402 [facility] DIO OUTPATIEN 6 6 PHYSICIAN BOGDAN T VISIT S GROUP 15 MINUTES OFFICE 37600 [facility] DIO OUTPATIEN 6 6 PHYSICIAN BOGDAN T VISIT S GROUP 15 MINUTES OFFICE 76986 [facility] REYNOLDS MAR CONSULTAT 5 5 PARTNERS ION OF [place] NEW/ESTAB CO PATIENT 60 MIN OFFICE 77083 [facility] FR[facility]MAN OUTPATIEN 5 5 [facility] T VISIT HOSPITAL 15 MINUTES EMERGENCY 04493 [facility] PRETORIUS 5 5 [facility] T VISIT P LIMITED/M INOR PROB EMERGENCY 18607 GA[facility] 5 5 [facility] T VISIT MODERATE SEVERITY [facility]OSPITAL GAURI - 5 5 [facility] OUTPATIEN INC T EMERGENCY 98148 [facility] FAYE DEPT 3 3 EMERGENCY VISIT SERVICES HIGH SEVERITY& THREAT [facility] [place] [address] 8 [facility] INPATIENT INC OFFICE 65231 PAMELA SANTIAGO OUTPATIEN 8 8 DON R DON R T VISIT 15 MINUTES OFFICE 49286 ANNE RODRÍGUEZ OUTPATIEN 8 8 ADY GARSIA T VISIT 40 MINUTES
--- OUTSIDE RECORDS SUMMARY | 2017-09-14 19:14 | External Medical Summary Rpt | CCD ---
Author Author , KEIRY Organization KEIRY Address Unknown Phone [email or web address] Care Team Providers Care Astronomy Professor Name Role Phone [facility] Unavailable Unavailable [place], [facility] [place] BEINEKE, BEINEKE Unavailable Unavailable [facility] Unavailable Unavailable SERVICE, [facility] Unavailable Unavailable SERVICE, [facility] ADY RODRÍGUEZ, Unavailable Unavailable ADY RODRÍGUEZ [facility] Unavailable Unavailable [facility], [facility] Unavailable Unavailable [place], [facility] WOOD JULIO, WOOD JULIO Unavailable Unavailable WOOD JULIO, WOOD JULIO Unavailable Unavailable DARYN, SIENA, Unavailable Unavailable DARYN, SIENA [facility], Unavailable Unavailable [facility] [place] [facility] [place] [facility], RED Unavailable Unavailable FRYMAN, FRYMAN Unavailable Unavailable FRYMAN EUG, FRYMAN Unavailable Unavailable EUG DIO BOGDAN, DIO Unavailable Unavailable BOGDAN [facility] Unavailable Unavailable INC, [facility] Unavailable Unavailable HOSPITAL, [facility] Unavailable Unavailable HOSPITAL P, [facility], Unavailable Unavailable [facility], Unavailable Unavailable [facility] ARACELIS DUGAN Unavailable Unavailable [facility] Unavailable Unavailable [facility], [facility] Unavailable Unavailable [facility], [facility] Unavailable Unavailable SERVICES, [facility] BEREKET CROWE JR Unavailable Unavailable [...] DOS Provider Status H524 PRESBYOPIA 11-25-2016 ENRIQUE [id number] UNSPECIFIED 10-15-2016 [facility] ED R0602 SHORTNESS 10-15-2016 [facility] R062 WHEEZING 10-15-2016 [facility] J40 BRONCHITIS 10-05-2016 [facility] NOT PHYSICIAN SPECIFIED GROUP ACUTE OR CHRONIC J209 ACUTE 07-31-2016 [facility] BRONCH[facility] PHYSICIAN UNSPECIFIED GROUP E663 OVERWEIGHT 05-14-2016 [facility] Z720 TOBACCO USE 05-14-2016 [facility] B356 TINEA 04-11-2016 [facility] CRURIS PHYS[facility]IANS GROUP J449 CHRONIC 04-11-2016 [facility] OBSTRUCTIVE PHYSICIANS PULMONARY GROUP DISEASE UNS D649 ANEMIA 10-17-2015 [facility] UNSPECIFIED PHYSICIANS [place] E559 VITAMIN D 10-17-2015 LAB A[facility] DEFICIENCY GALO UNSPECIFIED HOLDINGS [id number] UNSPECIFIED 10-17-2015 LAB A[facility] ASTHMA GALO WITH ACUTE HOLDINGS EXACERBATIO N J3089 OTHER 10-10-2015 [facility] J440 COPD WITH 10-10-2015 [facility] ACUTE LOWER [facility] [place] RESPIRATORY INFECTION J4520 MILD 10-10-2015 [facility] INTERMITTEN PARTNERS OF T ASTHMA [place] UNCOMPLICAT ED K02948 PERSONAL 10-10-2015 [facility] HISTORY OF PARTNERS OF NICOTINE [place] DEPENDENCE 4660 ACUTE 04-30-[address] [place] [address] [facility] 30697 METHICILLIN 02-16-2015 [place] [facility] P CUS AUREUS 6823 CELLULITIS 02-16-2015 [place] AND ABSCESS [facility] P ARM AND FOREARM V5869 LONG-TERM 05-17-2013 WOOD JULIO (CURRENT) USE OF OTHER MEDICATIONS 5070 PNEUMONITIS 05-04-2013 [facility] INHALATION SERVICES OF FOOD OR VOMITUS 46095 ALTERED 05-04-2013 [facility]US [facility] 61420 SHORTNESS 05-04-2013 [facility] SERVICE V154 PERS HX 04-28-2008 [facility]IC [facility] AL TRAUMA PRS [facility] 77506 ASTHMA, 02-06-2008 SANTIAGO, UNSPECIFIED DON R , UNSPECIFIED STATUS 23567 UNS ADVRS 02-06-2008 BETTY SANTIAGO OTH RX DON R MEDICINAL&B IOLOGICAL SBSTNC 2768 HYPOPOTASSE 02-05-2008 [facility] PROF SERV 31813 CHRONIC 02-05-2008 [facility] WITH PROF SERV EXACERBATIO N 9712 POISONING 02-05-2008 [place] BY [facility] ETICS PROF SERV 7295 PAIN IN 02-02-2008 PAMELA, SOFT DON R TISSUES OF LIMB 01407 CLOSED 11-30-2007 RODRÍGUEZ, FRACTURE ADY METACARPAL BONE [...] 34 0- 7- 00 03 Av ve WI 59 20 20 AI ai ED 31 [...] Procedures Procedure DOS Code Location Performer Comment [facility] [address]4938 SCIFRES SCIFRES MEDICAL 6 XM&EVAL COMPRE NEW PT 1/> VST RADIOLOGI 15611 [facility] C EXAM 6 MEDICAL CHEST 2 IMAGING VIEWS ASS FRONTAL&L ATERAL THERAPEUT 77996 [facility] FRYMAN IC 6 PHYSICIAN PROPHYLAC GROUP TIC/DX INJECTION SUBQ/IM 25 40896 LAB ANA LAB ANA HYDROXY 5 GALO GALO INCLUDES HOLDINGS HOLDINGS FRACTIONS IF PERFORMED ALLERGEN 45255 LAB ANA LAB ANA SPECIFIC 5 GALO GALO IGE HOLDINGS HOLDINGS EMILY/SEMI EMILY EA ALLER[facility] BLOOD 05630 COMBINED COMBINED COUNT 5 PHYSICIAN PHYSICIAN COMPLETE S LA S LA AUTO&[place] [address] LAB ANA LAB ANA GAMMAGLOB 5 GALO GALO ULIN IGE HOLDINGS HOLDINGS BRNCDILAT 64554 [facility] RYENOLDS MAR RSPSE 5 PARTNERS SPMTRY OF [place] PRE&POST- CO BRNCDILAT ADMN DEMO&/GABRIELLA 19034 [facility] ALLERGY L OF PT 5 PARTNERS PARTNERS UTILIZ OF [place] AERSL CO CO GEN/NEB/I NHLR/IP NITRIC 71689 [facility]ERGY OXIDE 5 PART[facility]ERS [facility] [place] [facility] [place] GAS CO CO DETERMINA TION INCISION 36748 [facility] ASTORGA & 5 [facility] DRAINAGE INC INC ABSCESS SIMPLE/SI NGLE CUL BACT 88825 GAURI ASTORGA XCPT 5 [facility] URINE INC INC BLOOD/STO OL AEROBIC ISOL CUL BACT 79398 GAURI ASTORGA AEROBIC 5 [facility] ADDL INC INC METHS DEFINITIV E EA ISOL SUSCEPTIB 56327 GAURI ASTORGA LTY STDY 5 [facility] ANTIMICRB INC INC IAL MICRO/AGA R DILUTJ ECG 44254 WOOD JULIO WOOD JULIO ROUTINE 3 ECG W/LEAST 12 LDS I&R ONLY AMB A0427 [facility] 3 AMBULANCE AMBULANCE ALS SERVICE SERVICE EMERGENCY TRANSPORT LEVEL 1 GROUND A0425 [facility] 3 AMBULANCE AMBULANCE PER SERVICE SERVICE STATUTE [facility] 64783 [facility] 8 DON R DON R DAY MANAGEMEN T 30 MIN/< SBSQ 19660 [facility] DON R DON R CARE/DAY 25 MINUTES SBSQ 74564 [facility] 8 DON R DON R CARE/DAY 25 MINUTES RADIOLOGI 01752 [place] Alejandra STEARNS 8 MEDICAL SIENA EXAMINATI IMAGING ON CHEST ASSOCIATE SINGLE S VIEW FRONTAL INITIAL 10737 [facility] 8 DON R DON R CARE/DAY 50 MINUTES RADIOLOGI 52833 [place] Alejandra LARSON EXAM 8 MEDICAL FRANCISCO P CHEST 2 IMAGING VIEWS ASSOCIATE FRONTAL&L S ATERAL ECG 83418 GAURI CROWE ROUTINE 8 [facility] BEREKET Urvashi W/LEAST PROF SERV 12 LDS I&R ONLY APPLICATI 19503 ANNE RODRÍGUEZ, ON CAST 8 ADY ADY SHOULDER HAND LONG ARM Encounters Encounter Start End Date Code Location Performer Type Date EMERGENCY [address] [place] 6 6 PHYSICIAN [facility] T VISIT MODERATE SEVERITY OFFICE 53719 [facility] FRYMAN OUTPATIEN 6 6 PHYSICIAN T VISIT GROUP 25 MINUTES OFFICE 32397 [facility] RED OUTPATIEN 6 6 PHYSICIAN T VISIT GROUP 25 MINUTES OFFICE 23163 [facility] DIO OUTPATIEN 6 6 PHYSICIAN BOGDAN T VISIT S GROUP 15 MINUTES OFFICE 76633 [facility] DIO OUTPATIEN 6 6 PHYSICIAN BOGDAN T VISIT S GROUP 15 MINUTES OFFICE 95498 [facility] MAR CONSULTAT 5 5 PARTNERS ION OF [place] NEW/ESTAB CO PATIENT 60 MIN OFFICE 52295 GAURI FRYMAN OUTPATIEN 5 5 [facility] VISIT HOSPITAL 15 MINUTES EMERGENCY 88544 GAURI PRETORIUS 5 5 [facility] ALLIANCE T VISIT P LIMITED/M INOR PROB EMERGENCY 88100 GAURI 5 5 [facility] T VISIT MODERATE SEVERITY HOSPITAL GAURI - 5 5 [facility] OUTPATIEN INC T EMERGENCY 39148 TIM[facility] FAYE DEPT 3 3 EMERGENCY VISIT SERVICES HIGH SEVERITY& THREAT [facility] [place] [address] 8 [facility] INPATIENT INC OFFICE 73324 PAMELA SANTIAGO OUTPATIEN 8 8 DON R DON R T VISIT 15 MINUTES OFFICE 59311 ANNE RODRÍGUEZ OUTPATIEN 8 8 ADY GARSIA T VISIT 40 MINUTES
--- OUTSIDE RECORDS SUMMARY | 2017-09-14 19:15 | External Medical Summary Rpt | CCD ---
Demographics Preferred Language Telugu Marital Status Unknown Scientologist Affiliation Unknown Race Unknown Ethnic Group Unknown Author Author , KEIRY RICCI Address Unknown Phone Immunization No patient found.
--- OUTSIDE RECORDS SUMMARY | 2017-09-14 19:15 | External Medical Summary Rpt ---
Author Author KEIRY Valentin, KEIRY Valentin Organization [employer] Address Unknown Phone Unavailable
--- OUTSIDE RECORDS SUMMARY | 2017-09-14 19:15 | External Medical Summary Rpt | CCD ---
Demographics Preferred Language Romanian Marital Status Unknown Taoism Affiliation Unknown Race Unknown Ethnic Group Unknown Author Author , KEIRY RICCI Address Unknown Phone Immunization No patient found.
[2017-09-14] MEDS ORDERED: TESSALON PERLE100 M1 PO (19:40)
[2017-09-14] MEDS ORDERED: PROAIR HFA0.09 MG/AC IH (19:40)
[2017-09-14] MEDS ORDERED: MEDROL 4MG. DOSE4 MG PO (19:40)
[2017-09-14] MEDS ORDERED: ZITHROMAX Z PA250 MG PO (19:40)
[2017-09-14 19:45] VITALS: BP 112/79
--- NOTE | 2017-09-14 19:45 | Urgent Treatment Center Report ---
History of Present Issue Date/Time Seen by Provider 09/14/171919 Visit Reason Pt arrived:Walked Presenting Problem:PT IS COMPLAINING OF SOA X2 DAYS. PT STATES HE "FEELS LIKE HES DROWNING" Location if Accident: Onset of symptoms date/time:/ or onset unknown for:MEDICAL HX UNKNOWN Have you (or family members/close friends) recently traveled outside the [place]? N If Yes, where/when: Have you had exposure to infectious disease within the past month? TB? Other? Specify: Patient states that he was seen and treated 2 weeks ago for Bronchitis state that he thinks it is back and he felt good until two days ago when he noticed that he was having a lot of drainage again hearing a gurgling sound in his bronchia State that when he lays down he feels the fluid move. State that he has a breathing machine at home but the dog eat his cord and he has not been able to do his breathing treatments. ALLERGIES Coded Allergies: peanut (Severe, THROAT SWELLING 10/15/16) hydrocodone (Mild, I-RASH 10/15/16) Home Medications Reported Medications Albuterol Sulfate (Albuterol Sulfate Hfa) 1-2 PUFFS IH PRN #1 INH History Medical History General CAD? No Angina: No AK: No Hypertension? No Hyperlipidemia? No CHF? No DVT? No PE? No COPD? Yes Asthma? Yes Anemia? No GERD? No Gastric ulcers? No GI Bleed? No Hernia? No Thyroid Problems? No Hypothyroidism? No CVA? No Seizures? No Diabetes? No Renal Insuffiency? No UTI? No Stones? No BPH? No GB Disease: Yes Nephritic Syndrome? No Asplenia? No Hepatitis? No Sickle Cell Disease? No Arthritis? No Migraines? No Cataracts? No Glaucoma? No MRSA? Yes HIV? No TB? No Anxiety? Yes Depression? No Cancer? No More? No Immunization HX DT/Tetanus 1-4 YRS Flu [id number] Pneumonia REFUSES Surgical Hx Previous Surgery?Y L ANKLE Family History Family HX Diabetes Yes CAD No Hypertension Yes Hyperlipidemia No Cancer No TB No Social History Smoking Hx Smoker: Current Every Day Smoker Tobacco: Yes Type Cigarettes Packs/day < 1 Pack Alcohol Alcohol: No Review of Systems All Other Systems Reviewed and Negative Constitutional fever ENT throat pain. Respiratory cough, shortness of breath, denies stridor, wheezing Cardiovascular denies chest pain, denies palpitations Physical Exam Vital Signs Vital Signs Date Time Temp Pulse Resp B/P Pulse O2 O2 Flow FiO2 Ox Delivery Rate 09/14 1915 97.9 97 20 112/79 98 General Appearance normal appearance, WD/WN, no apparent distress Ear, Nose, Throat Throat mildly red, irritated drainage noted Respiratory Status Yes: trachea midline, chest symmetrical, non tender chest. No: respiratory distress. Lung Sounds bilateral: wheezing. Cardiovascular normal exam, regular rate/rhythm Neurologic alert, normal exam, oriented x 3 Medical Decision Making LABS/Meds/Orders Pt receiving controlled substance in ED? No Results/Orders Current Medication Orders Sig/Rosi Start time Last Medication Dose Route Stop Time Status Admin Albuterol/Ipratropium 3 ML ONCE ONE 09/14 1930 DC INH 09/14 1931 Methylprednisolone 125 MG ONCE ONE 09/14 1930 CAN Sodium Succinate IM 09/14 1931 Albuterol/Ipratropium 0 .STK-MED ONE 09/14 1929 DC INH Orders Procedure Date/time Status RT REQUEST DUONEB 09/14 1921 Active CHEST(2 VIEWS-NOT PORTABLE) 09/14 1919 Active XRAY/CT/US XRAY/CT/US XRAY chest XR interpretation by reviewed by me Xray Results no infiltrates Comment Discussed with Dr Calvillo Progress [facility] Progress Notes Comment After breathing treatment patient wheezing diminished patient state that he is feeling better Departure Departure Time of Disposition 1943 Disposition DC Home or Self Care(routine) Clinical Impression Primary Impression: Acute bronchitis Qualifiers: Bronchitis organism: unspecified organism Qualified Code: J20.9 - Acute bronchitis, unspecified Condition STABLE Referrals Belinda BAE,Jeff Gloria (Family): 3 Days-Call Office If no improvement or worsening of symptoms Patient Instructions DI for Chronic Bronchitis Additional Instructions feeling better as needed ( As long as your primary care physician has told you that it ok to take both. For fever/aches/pains ER if no less than 101 despite Tylenol or Motrin ask pharmacist to demonstrate how. Should help open airways and improve cough, wheezing, and shortness of breath sure to drink lots of water. Insurance may not cover a prescriptions for mucinex. Might be cheaper to get 400mg tablets and take 2 tablet in the morning, mid-day and evening with lots of water. *Tessalon Perles will not cause drowsiness but use at bedtime to help stop cough so that you may get some rest. *Start steroid today. Helps with inflammation therefore, cough and wheezing. Follow directions on the package. Reviewed side effects. Patient reports taking them before. Follow up IMMEDIATELY for new or worsening of symptoms OR no noticeable improvement over the next 48-72 hours. 911 immediately for any life threatening symptoms such as chest pain or difficulty breathing Discharge Counseling Counseled pt/family regarding diagnosis, test results, medications/RX, home care Prescriptions Current Visit Scripts Azithromycin (Zithromycin (Z-BETO) 250MG Tab) 250 MG PO DAILY #6 TAB TAKE TWO (2) TABLETS ON DAY 1, THEN ONE (1) TABLET DAY #2 THRU #5 Methylprednisolone (Medrol Dose Beto) 4 MG PO UD #1 BETO TAKE DIRECTED ON PACKAGING Benzonatate (Tessalon Perle) 100 MG PO TID #15 SGL Albuterol Sulfate (Proair Hfa) 2 PUFFS IH Q6HP PRN shortness of air #1 INH Ref 2 at 1945
--- NOTE | 2017-09-14 20:00 | RADIOLOGY REPORT PS360 ---
CHEST(2 VIEWS-NOT PORTABLE) HISTORY: SOA cough congestion chest tightness Patient Age: 41 years: Male Ordering Physician: JOSE DON APRN TECHNIQUE: PA and lateral chest COMPARISON :Previous chest film 2 view 10/15/2016. FINDINGS Suggest a mild hyperexpansion slight flattening of diaphragm on lateral view. Slight coarsening markings throughout again seen reflecting diffuse chronic changes. Lung cabrera with Stable appearance with no discrete change since September 2016 nor September 2012 CXR. Only question subtle peribronchial cuffing which could reflect some mild central airway inflammatory changes. Equivocal but noted. Heart upper normal in size. Ginny and mediastinal structures satisfactory. No pneumothorax nor pleural effusion. Chest wall and T-spine appears stable. IMPRESSION: Minor chronic changes. No focal infiltrate or pneumonia evident. . Basically stable chest, with only question of slight peribronchial cuffing centrally which could reflect mild central airway inflammatory changes & bronchitis.. Unimpressive but noted
== END 2017-09-14 19:52 | disposition home or self-care (01) ==
LOC: UTC 19:02
DX: J20.9 Acute bronchitis, unspecified (principal); J44.0 Chronic obstructive pulmonary disease with (acute) lower respiratory infection; F17.210 Nicotine dependence, cigarettes, uncomplicated; Z79.899 Other long term (current) drug therapy

== ENCOUNTER 2017-10-17 16:36 | Emergency (ER) | payer MEDICAID ==
[~2017-10-17] VITALS: Ht 177.8 cm; Wt 96.2 kg
[~2017-10-17 16:36] MED LIST changes: +PROAIR HFA0.09 MG/AC IH; +TESSALON PERLE100 M1 PO; +ZITHROMAX Z PA250 MG PO
--- OUTSIDE RECORDS SUMMARY | 2017-10-17 16:43 | External Medical Summary Rpt | CCD ---
Author Author Conduent Organization Conduent Address Unknown Phone Unavailable Purpose Continuity of Care Document - through 2016
--- OUTSIDE RECORDS SUMMARY | 2017-10-17 16:43 | External Medical Summary Rpt | CCD ---
Author Author , KEIRY RICCI Address Unknown Phone Care Team Providers Care [facility] Name Role Phone Russel Graham MD, Unavailable Unavailable Russel Graham MD Purpose Continuity of Care Document - 05-04-2013 through 2016 Problems Code Diagnosis DOS Provider Status [id number] Anxiety [place] disorder [facility] 724.2 Low back [place] pain [facility] R06.2 WHEEZING Allergies, Adverse Reactions, Alerts Type Drug Allergy Food Allergy Adverse Reaction to Substance Substance Reaction Severity Hydrocodone I-HIVES Intermediate Peanuts "THROAT SWELLS SHUT" Severe PEANUTS (FOOD) "THROAT SWELLS SHUT" Severe Medications Na ND Rx Da Fi Fi Am Da Di Ph RX Ph St me C No te ll ll ou ys ag ar # ys at rm s nt no ma ic us Or Da si cy ia de te s n re d CE 00 06 0 No FT 40 [...] 0. 9% 10 0M L Ad v Vital Signs 05-05-2013 10:00 Name Value Interpretat [...] K/MM3 8 ed Auto 06:00 RBC # 06-08-2 4.40 4.6-6.2 complet Bld 013 M/mm3 ed Auto 06:00 Hgb 08-2 12.7 14.1-18 complet Bld-mCn 013 g/dL .0 ed c 06:00 Hct Fr 05-05-2 38.4 % 42.0-52 complet Bld 013 .0 ed 06:00 MCV RBC 08-2 87.4 fl 82.2-97 complet 013 .8 ed 06:00 MCH RBC 08-2 28.9 pg 27-31.2 complet Qn 013 ed Auto 06:00 MEAN 0608-2 33.1 31.8-35 complet CORPUSC 013 g/dl .4 ed ULAR 06:00 HGB CONC RDW RBC 08-2 14.1 % 11.5-17 complet Auto 013 .5 ed 06:00 Platele 05-05-2 210 142-424 complet t Bld 013 K/mm3 ed Ql 06:00 Manual MEAN 05-05-2 8.4 fl 7.4-10. complet PLATELE 013 4 ed T 06:00 VOLUME Granulo -08-2 93.7 % 37.0-80 complet cytes 013 .0 ed Fr Bld 06:00 Auto LYMPH % 08-2 4.4 % 10-50 complet 013 ed 06:00 Monocyt 08-2 1.7 % 1.7-9.3 complet es Fr 013 ed Bld 06:00 Auto Eosinop -08-2 0.1 % 0.1-12. complet hil Fr 013 0 ed Bld 06:00 Auto Basophi 08-2 0.1 % 0.1-2.0 complet ls Fr 013 ed Bld 06:00 Auto Granulo -08-2 15.8 1.3-8.0 complet cytes # 013 K/mm3 ed Bld 06:00 Auto Lymphoc 06-08-2 0.7 0.7-4.5 complet ytes Fr 013 K/mm3 ed Bld 06:00 Auto Monocyt 06-08-2 0.3 0.1-1.0 complet es # 013 K/mm3 ed Bld 06:00 Auto Eosinop 06-08-2 0.0 0.0-0.4 complet hil # 013 K/mm3 ed Bld 06:00 Auto Basophi 05-05-2 0.0 0-0.2 complet ls # 013 K/MM3 ed Bld 06:00 Auto ARTERIAL BLOOD GAS (05-04-2013 08:45) ARTERIA 05-04-2 7.39 7.35-7. complet L PH 013 MMOL/L 45 ed 08:45 ARTERIA 05-04-2 41.0 35.0-45 complet L PCO2 013 MMHG .0 ed 08:45 ARTERIA 05-04-2 58.0 80-100 complet L PO2 013 MMHG ed 08:45 ARTERIA 05-04-2 25.0 22.0-26 complet L HCO3 013 MMOL/L .0 ed 08:45 ARTERIA 05-04-2 17.6 23-27 complet L TCO2 013 MMOL/L ed 08:45 Base --2 -0.2 -2.4-+2 complet excess 013 MMOL/L .3 ed BldA-sC 08:45 nc ARTERIA 91 % 90-100 complet L O2 013 ed SAT 08:45 Arteria 2 ACCEPTA complet l 013 BLE ed patency [...] ML/MIN than ed BRAIN) 08:30 60 Sodium 05-04- 139 136-145 complet SerPl-s 013 mmoL/L ed Cnc 08:30 Potassi 4.1 3.5-5.1 complet um 013 mmoL/L ed SerPl-s 08:30 Cnc Chlorid 102 98-107 complet e 013 mmoL/L ed SerPl-s 08:30 Cnc CO2 31 21.0-32 complet SerPl-s 013 mmoL/L .0 ed Cnc 08:30 Calcium 06-07-2 8.8 8.5-10. complet 013 mg/dL 1 ed SerPl-m 08:30 Cnc Prot 07-2 8.0 6.4-8.2 complet SerPl-m 013 gm/dL ed Cnc 08:30 Albumin 06-07-2 4.0 3.4-5.0 complet 013 gm/dL ed SerPl-m 08:30 Cnc Globuli 07-2 4.0 1.3-3.2 complet n 013 gm/dL ed Ser-mCn 08:30 c Albumin -07-2 1.0 UNK 1.1-1.8 complet /Glob 013 ed SerPl-m 08:30 Rto Bilirub 05-04-2 0.2 0.2-1.0 complet 013 mg/dL ed SerPl-m 08:30 Cnc AST 07-2 21 U/L 15-37 complet SerPl-c 013 ed Cnc 08:30 ALT -07-2 40 U/L 30-65 complet SerPl-c 013 ed Cnc 08:30 ALP -07-2 117 U/L 50-136 complet SerPl-c 013 ed Cnc 08:30 CBC with AUTO DIFF (05-04-2013 08:30) WBC # 06-07-2 21.6 4.8-10. High complet Bld 013 K/MM3 8 alert ed Auto 08:30 RBC # 06-07-2 5.10 4.6-6.2 complet Bld 013 M/mm3 ed Auto 08:30 Hgb -07-2 14.5 14.1-18 complet Bld-mCn 013 g/dL .0 ed c 08:30 Hct Fr 07-2 44.2 % 42.0-52 complet Bld 013 .0 ed 08:30 MCV RBC 06-07-2 86.6 fl 82.2-97 complet 013 .8 ed 08:30 MCH RBC 07-2 28.4 pg 27-31.2 complet Qn 013 ed Auto 08:30 MEAN 06-07-2 32.8 31.8-35 complet CORPUSC 013 g/dl .4 ed ULAR 08:30 HGB CONC RDW RBC 07-2 13.9 % 11.5-17 complet Auto 013 .5 ed 08:30 Platele 06-07-2 274 142-424 complet t Bld 013 K/mm3 ed Ql 08:30 Manual MEAN 06-07-2 7.5 fl 7.4-10. complet PLATELE 013 4 ed T 08:30 VOLUME Granulo 06-07-2 89.7 % 37.0-80 complet cytes 013 .0 [...] 013 K/mm3 ed Bld 08:30 Auto Monocyt 06-07-2 1.1 0.1-1.0 complet es # 013 K/mm3 ed Bld 08:30 Auto Eosinop 06-07-2 0.2 0.0-0.4 complet hil # 013 K/mm3 ed Bld 08:30 Auto Basophi 06-07-2 0.1 0-0.2 complet ls # 013 K/MM3 ed Bld 08:30 Auto MYCOPLASMA IGM (RAPID) (05-04-2013 08:30) MYCOPLA 06-07-2 NON-RJ NONREAC complet SMA IGM 013 CTIVE TIVE ed 08:30 (RAPID) Encounters Encounter Start End Date Code Location Performer Type Date Inpatient IMP Chuy Graham ([place]) 3 08:59 3 10:30 [facility]
--- OUTSIDE RECORDS SUMMARY | 2017-10-17 16:43 | External Medical Summary Rpt | CCD ---
Demographics Preferred Language Czech Marital Status Unknown Spiritism Affiliation Unknown Race Unknown Ethnic Group Unknown Author Author , KEIRY RICCI Address Unknown Phone Immunization No patient found.
--- OUTSIDE RECORDS SUMMARY | 2017-10-17 16:43 | External Medical Summary Rpt | CCD ---
Author Author , KEIRY RICCI Address Unknown Phone [email or web address] Care Team Providers Care Rehabilitation Liaison Name Role Phone Russel Graham MD, Unavailable Unavailable Russel Graham MD Purpose Continuity of Care Document - 05-04-2013 through 2016 Problems Code Diagnosis DOS Provider Status [id number] Anxiety [place] disorder [facility] 724.2 Low back [place] pain [facility] R06.2 WHEEZING Allergies, Adverse Reactions, Alerts Type [...] Chuy Graham ([place]) 3 08:59 3 10:30 [facility]
--- OUTSIDE RECORDS SUMMARY | 2017-10-17 16:43 | External Medical Summary Rpt | CCD ---
Demographics Preferred Language Mohawk Marital Status Unknown Yazdanism Affiliation Unknown Race Unknown Ethnic Group Unknown Author Author , KEIRY RICCI Address Unknown Phone Immunization No patient found.
[2017-10-17] MEDS ORDERED: BREO ELLIPTA 21 EACH IH (17:16)
[2017-10-17] MEDS ORDERED: PREDNISONE 20MG20 MG PO (17:16)
--- NOTE | 2017-10-17 17:17 | [facility]gent [facility] Report ---
History of Present Issue Date/Time Seen by Provider 10/17/17 1650 Visit Reason Pt arrived:Walked Presenting Problem:PT C/O CHEST CONGESTION AND COUGH SINCE YESTERDAY Location if Accident: Onset of symptoms date/time:/ or onset unknown for:MEDICAL HX UNKNOWN Have you (or family members/close friends) recently traveled outside the [place]? N If Yes, where/when: Have you had exposure to infectious disease within the past month? TB? Other? Specify: c/o worsening cough, chest congestion, SOA, wheezing and mucous. First noticed as increasing SOA yesterday. Hx of COPD. Still smokes approx 1ppd. Typically uses breo daily but ran out of sample around 1 week ago. Has insurance now but no prescription to get it. Albuterol PRN. Has nebs but reports rarely uses them "unless symptoms worsen". Started using neb yesterday. Helps symptoms. Last neb 1.5 hours ago. Hasn't taken or tried anything else. No chest pain, fever, aches, chills. Hx of bronchitis. Source patient Exam Limitations no limitations ALLERGIES Coded Allergies: peanut (Severe, THROAT SWELLING 10/15/16) hydrocodone (Mild, I-RASH 10/15/16) Home Medications Active Scripts Azithromycin (Zithromycin (Z-BETO) 250MG Tab) 250 MG PO DAILY #6 TAB Prov: 09/14/17 Methylprednisolone (Medrol Dose Beto) 4 MG PO UD #1 BETO Prov: 09/14/17 Benzonatate (Tessalon Perle) 100 MG PO TID #15 SGL Prov: 09/14/17 Albuterol Sulfate (Proair Hfa) 2 PUFFS IH Q6HP PRN shortness of air #1 INH Ref 2 Prov: 09/14/17 Reported Medications Albuterol Sulfate (Albuterol Sulfate Hfa) 1-2 PUFFS IH PRN #1 INH History Medical History General CAD? No Angina: No [place]: No Hypertension? No Hyperlipidemia? No CHF? No DVT? No PE? No COPD? Yes Asthma? Yes Anemia? No GERD? No Gastric ulcers? No GI Bleed? No Hernia? No Thyroid Problems? No Hypothyroidism? No CVA? No Seizures? No Diabetes? No Renal Insuffiency? No UTI? No Stones? No BPH? No GB Disease: Yes Nephritic Syndrome? No Asplenia? No Hepatitis? No Sickle Cell Disease? No Arthritis? No Migraines? No Cataracts? No Glaucoma? No MRSA? Yes HIV? No TB? No Anxiety? Yes Depression? No Cancer? No More? No Immunization HX DT/Tetanus 1-4 YRS Flu [id number] Pneumonia REFUSES Surgical Hx Previous Surgery?Y L ANKLE Family History Family HX Diabetes Yes CAD No Hypertension Yes Hyperlipidemia No Cancer No TB No Social History Smoking Hx Smoker: Current Every Day Smoker Tobacco: Yes Type Cigarettes Packs/day < 1 Pack Alcohol Alcohol: No Review of Systems All Other Systems Reviewed and Negative Constitutional see HPI, denies malaise, denies weakness Eyes denies drainage ENT denies: ear pain, nose discharge, nose congestion, throat pain. Respiratory see HPI Cardiovascular see HPI, denies palpitations Gastrointestinal denies no symptoms reported Musculoskeletal denies joint pain Skin denies rash Psychiatric/Neurological denies headache Physical Exam Vital Signs Vital Signs Date Time Temp Pulse Resp B/P Pulse O2 O2 Flow FiO2 Ox Delivery Rate 10/17 170 99.2 91 20 123/81 96 General Appearance normal appearance, no apparent distress Ear, Nose, Throat normal ENT inspection Neck non-tender, supple Respiratory Status Yes: trachea midline, chest symmetrical, non tender chest, non productive cough. No: respiratory distress, use of accessory muscles, pain on inspiration, pain on expiration, productive cough. Lung Sounds anterior: wheezing (expiratory throughout). posterior: wheezing (expiratory throughout). bilateral: wheezing (expiratory throughout). Cardiovascular regular rate/rhythm, no peripheral edema, no murmur Neurologic alert, abnormal cerebellar tests Mental status normal mood/affect Skin normal color, warm/dry Lymphatic no adenopathy Medical Decision Making LABS/Meds/Orders Pt receiving controlled substance in ED? No Results/Orders Current Medication Orders Sig/Rosi Start time Last Medication Dose Route Stop Time Status Admin Methylprednisolone 0 .STK-MED ONE 10/17 1712 DC Sodium Succinate .ROUTE Methylprednisolone 125 MG ONCE ONE 10/17 1700 DC 10/17 Sodium Succinate IM 10/17 1701 171 Departure Departure Time of Disposition 1739 Disposition DC Home or Self Care(routine) Clinical Impression Primary Impression: COPD with exacerbation Secondary Impressions: Medication refill, Tobacco abuse Condition STABLE Referrals Bel[facility],Jeff Gloria (Family) IMMEDIATELY for new or worsening symptoms AND no noticeable improvement over the next 48-72 hours. 911 for difficulty breathing. Patient Instructions DI for Chronic Obstructive Pulmonary Disease, How to Quit Tobacco Products Additional Instructions * STOP SMOKING!!!! * start breo back FELIX. I sent prescription. Your flare is likely the result of not having this medication x 1 week. Follow up with primary care for further refills/prescriptions * Monitor Temp. Follow up if fever develops * humidifier/vaporizer/hot steamy shower * Inhaler every 4-6 hours as needed like we discussed. If unsure how to use it, ask pharmacist to demonstrate how. Should help open airways and improve cough, wheezing, shortness of breath. * Mucinex during the day for your cough and cough suppressant only at night. Be sure to drink lots of water. Insurance may not cover a prescription of mucinex. Might be cheaper to get 400mg tablets and take 2 tablets morning, midday and evening all with lots of water. * Start steroid tomorrow since you were given a steroid injection in clinic. Helps with inflammation therefore, cough and wheezing. Follow directions on package. Rvwd side effects. Pt reports they have taken them before. Discharge Counseling Counseled pt/family regarding diagnosis, medications/RX, home care, follow up needs Prescriptions Current Visit Scripts Prednisone (Prednisone 20MG) 20 MG PO BID #10 TAB start Tuesday Fluticasone/Vilanterol (Breo Ellipta 200-25 Mcg INH) 1 EACH IH DAILY #1 INH at 3128
[2017-10-17 17:56] VITALS: BP 123/81
== END 2017-10-17 17:58 | disposition home or self-care (01) ==
LOC: UTC 16:36
DX: J44.1 Chronic obstructive pulmonary disease with (acute) exacerbation (principal); Z72.0 Tobacco use; F41.9 Anxiety disorder, unspecified; Z88.6 Allergy status to analgesic agent